=== PATIENT | male | born 1960 | race Caucasian/White ===

== ENCOUNTER → 2016-10-04 | Outpatient (CLI) | payer BC ==
--- NOTE | 2016-10-04 17:57 | XR ---
EXAMINATION TYPE: XR lumbar spine 2 or 3V DATE OF EXAM: 10/04/2016 5:49 PM COMPARISON: NONE HISTORY: Back pain TECHNIQUE: 3 views FINDINGS: The vertebra have normal alignment. There is narrowing at L4-5 L5-S1 disc spaces with deepika ectomy defect and fusion surgery. There is mild narrowing at L3-4 disc. There is no compression fract ure. Sacroiliac joints are normal. IMPRESSION: Spondylotic changes and previous surgery. No acute bony abnormality.
== END ==
LOC: RADXRMAIN 17:21
PROVIDERS: ATTEND Physician Assistant
DX: M47.9 Spondylosis, unspecified (principal)
CPT/HCPCS: 72100

== ENCOUNTER → 2016-12-07 | Outpatient (CLI) | payer BC ==
--- NOTE | 2016-12-07 19:25 | CT ---
EXAMINATION TYPE: CT lumbar spine wo con DATE OF EXAM: 12/07/2016 6:49 PM COMPARISON: NONE HISTORY: Lower back pain that radiates into legs. CT DLP: 694 mGycm Automated exposure control for dose reduction was used. Unenhanced CT of the lumbar spine was performed. Bone and soft tissue window settings are submitted as well as coronal and sagittal reconstructions. There is disc prosthesis noted at L4-5 and L5-S1. There is laminectomy at L4 and L5. Vertebra have no rmal alignment. There is mild narrowing of lumbar disc spaces from L3 to S1. There is 25% anterior we dging of T12 vertebral body. I see no focal bone destruction. There is some hypertrophic facet arthro yudy at L4-5 L5-S1. I see no lumbar spinal stenosis. The sacroiliac joints appear normal. There is n o lumbar paraspinal mass. Normal appendix. IMPRESSION: Spondylotic changes. Previous surgery at L4 and L5. Mild compression fracture of T12 vertebra is prob ably not changed compared to exam of 10/04/2016. No acute bony abnormality. No spinal stenosis.
== END | disposition home or self-care (01) ==
LOC: RADCTMAIN 18:22
PROVIDERS: ATTEND Family Medicine
DX: M47.816 Spondylosis without myelopathy or radiculopathy, lumbar region (principal)
CPT/HCPCS: 72131

== ENCOUNTER → 2017-11-27 | Day surgery (SDC) | payer BC ==
[~2017-11-27] MED LIST: LIDOCAINE 1% INJ 10MG/ML (20 ML MDV) ONE; PROPOFOL 10 MG/ML 20 ML VIAL IV ONE
[2017-11-27 10:47] VITALS: RESP 16; TEMP 98.5
[2017-11-27] MEDS: LACTATED RINGERS 1,000 ML IV SCH ×2 (10:49→10:53)
[2017-11-27 11:22] VITALS: BP 122/82; PULSE 73
--- NOTE | 2017-11-27 11:32 | P.PCN ---
Date of Procedure: 11/27/17 Procedure(s) Performed: Procedure: Total colonoscopy. Preoperative diagnosis: Screening for neoplasia. Postoperative diagnosis: Exam within normal limits. Preparation: HalfLytely prep. Sedation: Was provided by anesthesia. Brief clinical history: The patient is a 57-year-old male who is scheduled for this evaluation for screening for neoplasia because of family history of colon cancer in his father. His last colonoscopies in 2008. The patient has no abdominal complaints, bleeding or anemia. Procedure: With the patient on his left lateral decubitus position and after informed consent and adequate sedation, the perianal area did not show any fissures or fistulas. There were no masses felt on digital rectal examination. The Olympus CFQ 160L video colonoscope was then inserted in the rectum in the usual fashion and advanced to the cecum. The mucosa appeared healthy. No polyps or tumors were seen or any obvious diverticular disease or other pathology. I retroflexed the endoscope in the rectum before the endoscope was withdrawn. The patient tolerated the procedure well. Plan: The patient was reassured. He will follow up with you as planned and I recommended repeat exam in 5 years.
== END ==
LOC: ORWHC2ENDO 09:40
DX: Z12.11 Encounter for screening for malignant neoplasm of colon (principal); Z80.0 Family history of malignant neoplasm of digestive organs; K21.9 Gastro-esophageal reflux disease without esophagitis; E78.5 Hyperlipidemia, unspecified; Z79.1 Long term (current) use of non-steroidal anti-inflammatories (NSAID); Z79.891 Long term (current) use of opiate analgesic; Z79.899 Other long term (current) drug therapy
CPT/HCPCS: J2001; J2704; G0105; 45378

== ENCOUNTER → 2020-11-05 | Outpatient (CLI) | payer BC ==
--- NOTE | 2020-11-05 09:07 | NM ---
EXAMINATION TYPE: NM hepatobiliary w EF DATE OF EXAM: 11/05/2020 COMPARISON: NONE HISTORY: K 82.8 TECHNIQUE: After the intravenous administration of 5.3 mCi Tc 99m Mebrofenin hepatobiliary scintigrap hy is performed. Immediate images post injection. FINDINGS: There is satisfactory initial accumulation of tracer by the liver. The gallbladder is visualized wit hin 5 minutes. The small bowel activity is noted on delayed images. At one hour 8 ounces of oral en sure plus is given to mimic CCK and gallbladder ejection fraction is calculated at 83 %, at the upper limit of the normal range. Therefore there is no scintigraphic evidence of cystic or common bile du ct obstruction to suggest acute cholecystitis or gallbladder dyskinesia. IMPRESSION: Some delay in visualization of the small bowel, gallbladder ejection fraction at the uppe r limit of normal
== END | disposition home or self-care (01) ==
LOC: RADNMMAIN 06:38
PROVIDERS: ATTEND Surgery
DX: K82.8 Other specified diseases of gallbladder (principal)
CPT/HCPCS: 78226; A9537

== ENCOUNTER 2020-11-30 06:25 | Day surgery (SDC) | payer BC ==
[2020-11-27 08:40] VITALS: BMI 30.3
[~2020-11-30 06:25] MED LIST changes: +ACETAMINOPHEN TAB 500 MG TAB PO PRN; +DEXAMETHASONE SOD PHOSPHATE 4 MG/ML 1 ML VIAL IV ONE; +HEPARIN SODIUM,PORCINE/PF 5,000 UNIT/0.5 ML SYRINGE SQ PRN; +LACTATED RINGERS 1,000 ML IV SCH; -LIDOCAINE 1% INJ 10MG/ML (20 ML MDV) ONE; +MIDAZOLAM 2 MG/2 ML VIAL IV PRN; +ONDANSETRON 4 MG/2 ML VIAL IVP ONE; -PROPOFOL 10 MG/ML 20 ML VIAL IV ONE; +SCOPOLAMINE 1.5MG/72HR PATCH TRANSDERM ONE
[2020-11-30] MEDS ORDERED: MIDAZOLAM 2 MG/2 ML VIAL ONE (07:49)
[2020-11-30] MEDS ORDERED: LIDOCAINE 1% INJ 10MG/ML (20 ML MDV) ONE (07:49)
[2020-11-30] MEDS ORDERED: SUCCINYLCHOLINE CHLORIDE 100 MG/5 ML SYR IV ONE (07:49)
[2020-11-30] MEDS ORDERED: HYDROmorphone (PF) 1 MG/ML ONE (07:49)
[2020-11-30] MEDS ORDERED: NEOSTIGMINE 1 MG/ML 10 ML VIAL ONE (07:49)
[2020-11-30] MEDS ORDERED: ROCURONIUM 10 MG/ML (5 ML VIAL) IV ONE (07:49)
[2020-11-30] MEDS ORDERED: GLYCOPYRROLATE 0.2 MG/ML 2 ML VIAL ONE (07:49)
[2020-11-30] MEDS ORDERED: KETOROLAC 15 MG/ML 1 ML VIAL ONE (07:49)
[2020-11-30] MEDS ORDERED: PROPOFOL 10 MG/ML 20 ML VIAL IV ONE (07:49)
[2020-11-30] MEDS ORDERED: fentaNYL (PF) 50 MCG/ML 2 ML AMP ONE (07:49)
[2020-11-30] MEDS ORDERED: BUPIVACAINE-EPI 0.5%-1:200,000 10 ML VIAL SQ ONE (08:10)
[2020-11-30 08:36] VITALS: TEMP 96.9
[2020-11-30] MEDS: HYDROmorphone 0.5 MG/0.5 ML SYRINGE IVP PRN ×2 (08:40→08:45)
--- NOTE | 2020-11-30 08:47 | P.GSHP ---
History of Present Illness H&P Date: 11/30/20 Chief Complaint: Right upper quadrant pain This a 60-year-old male presents today for laparoscopically cholecystectomy. Patient complaints of right quadrant abdominal pain after eating greasy foods. His HIDA scan shows an abnormal ejection fraction. 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 Past Anesthesia/Blood Transfusion Reactions: No Reported Reaction Smoking Status: Former smoker - Past Family History Mother Family Medical History: Cancer Additional Family Medical History / Comment(s): uterine,lung Sister(s) Family Medical History: Cancer Father Family Medical History: Cancer Medications and Allergies Home Medications Medication Instructions Recorded Confirmed Type No Known Home Medications 11/27/20 11/30/20 History Allergies Allergy/AdvReac Type Severity Reaction Status Date / Time No Known Allergies Allergy Verified 11/30/20 06:46 Surgical - Exam Vital Signs Temp Pulse Resp BP Pulse Ox 97.6 F 53 L 16 146/78 98 11/30/20 06:53 11/30/20 06:53 11/30/20 06:53 11/30/20 06:53 11/30/20 06:53
--- NOTE | 2020-11-30 08:49 | P.OP ---
Date of Procedure: 11/30/20 Preoperative Diagnosis: Chronic cholecystitis Postoperative Diagnosis: Chronic cholecystitis Procedure(s) Performed: Laparoscopic cholecystectomy Anesthesia: KYRIE Surgeon: Cal Russell Estimated Blood Loss (ml): 5 Pathology: other (Gallbladder) Condition: stable Disposition: PACU Description of Procedure: The patient was placed on the operating table. The patient received a general endotracheal tube anesthesia. The patients abdomen was prepped and draped in the usual sterile fashion. Through an infraumbilical stab incision, the fascia of the anterior abdominal wall was grasped with a pair of Kochers and then the Veress needle was placed in the peritoneal cavity. Position of the Veress needle was confirmed with positive drop test. The abdomen was then insufflated. After adequate insufflation, the 10 mm trocar was placed in the peritoneal cavity. Following this the laparoscope was placed in the peritoneal cavity. The patient was placed in the head-up, right side up position and then a 5 mm trocar was placed in the right lateral and right subcostal position under direct visualization. A 8 mm trocar was placed in the epigastric position. The gallbladder was grasped in the fundus and infundibulum. Traction on the gallbladder was placed in the lateral and the cephalad positions. The triangle of Calot was visualized.. The cystic duct was bluntly dissected until the union of the cystic duct and common bile duct was seen. A critical view of safety was achieved. The cystic duct was then divided and sealed with the Harmonic scissors. A PDS Endoloop was then placed throughout the cystic duct stump. The cystic artery divided and sealed with the Harmonic scissors. The gallbladder was then removed from the liver bed using Harmonic scissors. The gallbladder was then extracted through the epigastric port site. Operative field was checked for any bleeding spots and Harmonic scissors was used to coagulate the liver bed. The abdomen was irrigated. The trocars were removed. The skin was closed using interrupted 3-0 Vicryl suture. Dermabond dressing were applied. The patient tolerated the procedure well.
[2020-11-30] MEDS ORDERED: LACTATED RINGERS 1,000 ML IV ONE (09:04)
[2020-11-30 09:38] VITALS: RESP 16
[2020-11-30 10:09] VITALS: BP 141/71; PULSE 63
== END 2020-11-30 10:37 | disposition home or self-care (01) ==
LOC: OR 06:25
PROVIDERS: ATTEND Surgery
DX: K81.1 Chronic cholecystitis (principal); K21.9 Gastro-esophageal reflux disease without esophagitis; E78.5 Hyperlipidemia, unspecified; Z80.9 Family history of malignant neoplasm, unspecified
CPT/HCPCS: 88304; 47562; J2250; J1100; J2710; J0690; J2405; J2001; J3010; J1170 ×2; J1885; J0330; J2704; J1644

== ENCOUNTER 2024-11-15 10:09 | Day surgery (SDC) | payer BC ==
[2024-11-15] MEDS: IV FLUID CONTINUATION 1,000 ML IV ONE (10:42)
[2024-11-15] MEDS: LIDOCAINE 1% (10MG/ML) FOR IV START INTRADERMA PRN (10:42)
[2024-11-15] MEDS: LACTATED RINGERS 1,000 ML IV SCH (10:42)
[2024-11-15 10:54] VITALS: RESP 16; TEMP 97.8
[2024-11-15] MEDS ORDERED: PROPOFOL 10 MG/ML 20 ML VIAL IV ONE (11:52)
--- NOTE | 2024-11-15 12:09 | P.PCN ---
Date of Procedure: 11/15/24 Procedure(s) Performed: BRIEF HISTORY: Patient is a 64-year-old pleasant white male scheduled for an elective colonoscopy as a part of screening for colon cancer. PROCEDURE PERFORMED: Colonoscopy with biopsy. PREOPERATIVE DIAGNOSIS: Screening for colon cancer. IV sedation per Anesthesia. PROCEDURE: After informed consent was obtained, the patient, was brought into the endoscopy unit. IV sedation was administered by Anesthesia under continuous monitoring. Digital rectal examination was normal. Initially the Olympus CF-160 flexible video colonoscope was then inserted in the rectum, gradually advanced into the cecum without any difficulty. Careful examination was performed as the scope was gradually being withdrawn. Ileocecal valve and the appendiceal orifice were visualized and appeared normal. Prep was excellent. Mucosa of the cecum, appeared normal. The ascending colon there was a 4 mm polyp that was removed by cold biopsy. Rest of ascending colon, transverse colon, appeared normal. The descending colon there was a 5 mm polyp that was removed by cold biopsy. Rest of descending colon, sigmoid colon, and rectum appeared normal. Retroflexion was performed in the rectum and no lesions were seen. The patient tolerated the procedure well. IMPRESSION: 4 mm ascending colon polyp status post cold biopsy 5 mm descending colon polyp status post cold biopsy RECOMMENDATIONS: Findings of this examination were discussed with the patient as well as family. He was advised to follow-up with the biopsy results. If the biopsy reveals adenoma he can have repeat colonoscopy in 5 years
[2024-11-15 12:32] VITALS: BP 126/78; PULSE 71
== END 2024-11-15 12:50 | disposition home or self-care (01) ==
LOC: ORWHC2ENDO 10:09
PROVIDERS: ATTEND Internal Medicine Gastroenterology
DX: Z12.11 Encounter for screening for malignant neoplasm of colon (principal); D12.2 Benign neoplasm of ascending colon; D12.4 Benign neoplasm of descending colon
CPT/HCPCS: 45385; J2704; 88305